=== PATIENT | male | born 1970 | race Two or more races ===

== ENCOUNTER 2021-07-14 07:45 | Outpatient (CLI) | payer OTHER | END 2021-07-14 08:00 | disposition home or self-care (01) | LOC: PPH VACUNA 07:45 | PROVIDERS: ATTEND Emergency Medicine Pediatric Emergency Medicine | DX: Z23 Encounter for immunization (principal) ==

== ENCOUNTER → 2023-03-07 | Emergency (ER) | payer OTHER ==
[~2023-03-07] VITALS: Ht 177.8 cm; Wt 87.1 kg
== END | disposition home or self-care (01) ==
LOC: ER 08:36
DX: M54.9 Dorsalgia, unspecified (principal); Z88.5 Allergy status to narcotic agent

== ENCOUNTER 2025-04-03 13:08 | Emergency (ER) | payer OTHER ==
[~2025-04-03] VITALS: Ht 160 cm; Wt 83.9 kg
[2025-04-03] MEDS ORDERED: COZAAR25 MG (13:34)
[2025-04-03] MEDS ORDERED: HYOSCYAMINE SULFATE 0.125 MG TAB.SUBL ONE (16:36)
[2025-04-03] MEDS ORDERED: ONDANSETRON HCL 2 MG/ML VIAL ONE (16:36)
[2025-04-03] MEDS ORDERED: FAMOTIDINE/PF 20 MG/2 ML VIAL ONE (16:37)
[2025-04-03 21:49] LABS: INR 1.0
[2025-04-03 22:00] LABS: ALT/SGPT 25.0 U/L (12-78); AST/SGOT 7.0 U/L (15-37); BILIRUBIN TOTAL 0.26 mg/dL (0.3-1.2); BUN CREA RATIO 16.0 (7.0-25.0); CREATININE SERUM 1.21 mg/dL (0.70-1.30); GFR 61.81; GLOBULINA 4.3 G/DL (2.4-3.5); GLUCOSE FASTING 98.0 mg/dL (65-100); OSMOLALITY SERUM 283.0 MOSM/KG (275-295)
== END 2025-04-03 23:22 | disposition left against medical advice (07) ==
LOC: ER 13:08
PROVIDERS: General Practice
DX: R10.32 Left lower quadrant pain (principal); N28.1 Cyst of kidney, acquired; D35.02 Benign neoplasm of left adrenal gland